=== PATIENT | male | born 1975 | race African-American/Black ===

== ENCOUNTER 2022-09-09 20:40 | Emergency (ER) | payer OTHER, SELFPAY ==
[2022-09-09 20:43] VITALS: BP 146/97; PULSE 82; RESP 18; TEMP 36.8; O2SAT 98
--- NOTE | 2022-09-09 20:55 | ED.URI ---
HPI - URI/Sore Throat General Chief Complaint: Upper Respiratory Infection Stated Complaint: sinus infection Time Seen by Provider: 09/09/22 20:50 History of Present Illness HPI Narrative: 46-year-old male presents to the emergency room for evaluation of left-sided facial pain radiates into his teeth. States has been having symptoms for a week. Took Sudafed x1 with no relief of symptoms. States pain is worse when he leans forward to tie his shoes. Also complaining of sinus congestion postnasal drip and a headache. Related Data Allergies Allergy/AdvReac Type Severity Reaction Status Date / Time No Known Allergies Allergy Verified 09/09/22 20:49 Review of Systems Review of Systems: CONSTITUTIONAL: Denies fever, chills, or sweats. EYES: Denies visual changes, redness, or discharge. ENT: Reports rhinorrhea, congestion, and facial pain CARDIOVASCULAR: Denies chest pain, palpitations, or edema. RESPIRATORY: Denies cough or dyspnea. GASTROINTESTINAL: Denies abdominal pain, nausea, vomiting, or diarrhea. GENITOURINARY: Denies dysuria or hematuria. SKIN: Denies rash or itching. MUSCULOSKELETAL: Denies back pain, joint pain, or myalgia. NEUROLOGIC: Denies headache, numbness, dizziness, or weakness. PSYCHIATRIC: Denies anxiety or depression. Exam Narrative: GENERAL: Well-appearing, well-nourished, no physical limitations, and in no acute distress. HEAD: Normocephalic, atraumatic. EYES: Conjunctivae normal, PERRLA and EOMI. ENT: External nose normal, Nares clear, no rhinorrhea or epistaxis. Mucous membranes moist. Oropharynx without tonsillar hypertrophy exudate or other lesions. External ears normal, bilateral TMs normal bilaterally. Tenderness over left maxillary sinus NECK: Supple. No adenopathy or masses. CHEST: Clear to auscultation. No respiratory distress. No wheezes rales or rhonchi. HEART: Regular rate and rhythm. No murmur heard. Normal peripheral pulses. EXTREMITIES: Normal range of motion. No edema. No clubbing or cyanosis SKIN: Warm, dry, no rash. No noted wounds NEURO: No focal deficits. Alert and oriented x3. MAEW. CN's II-XI intact bilaterally, normal gait PSYCH: Cooperative. Normal mood and affect. Course Vital Signs Vital signs: Vital Signs Temperature 36.8 C 09/09/22 20:43 Pulse Rate 82 09/09/22 20:43 Respiratory Rate 18 09/09/22 20:43 Blood Pressure 146/97 H 09/09/22 20:43 Pulse Oximetry 98 09/09/22 20:43 Oxygen Delivery Room Air 09/09/22 20:43 Temperature 36.8 C 09/09/22 20:43 Pulse Rate 82 09/09/22 20:43 Respiratory Rate 18 09/09/22 20:43 Blood Pressure 146/97 H 09/09/22 20:43 Pulse Oximetry 98 09/09/22 20:43 Oxygen Delivery Room Air 09/09/22 20:43 Discharge Plan Discharge Clinical Impression: Acute infection of sinus Patient Disposition: Home, Self-Care Condition: Stable Instructions: Antibiotic Form, Sinusitis (ED) Prescriptions: New amoxicillin-pot clavulanate 875-125 mg tablet 1 tablet PO Q12H Qty: 14 0RF pseudoephedrine HCl [Sudogest] 30 mg tablet 30 mg PO Q4-6H PRN (Reason: nasal congestion) Qty: 30 0RF Rx Instructions: DNExceed 4 doses/24h prednisone 20 mg tablet 60 mg PO DAILY 5 Days Qty: 15 0RF Follow-up/Referrals: PHYSICIAN,HISTORICAL SITE GUIDE [Primary Care Provider] - Time of Disposition: 20:51
== END 2022-09-09 21:14 | disposition home or self-care (01) ==
PROVIDERS: Emergency Provider Nurse Practitioner Family
DX: J32.9 Chronic sinusitis, unspecified (principal)
CPT/HCPCS: 96372; 99283; J1100

== ENCOUNTER 2024-02-21 18:18 | Emergency (ER) | payer OTHER, SELFPAY ==
--- NOTE | ~2024-02-21 | CT_ITS ---
CT abdomen pelvis w con Ordering provider: Jie Harris History: 48 years Male with . abdominal pain . Comparison: None. Technique: CT abdomen and pelvis with IV and without oral contrast. Automated exposure control and it erative reconstruction technique were employed. The dose-length product was 596.19 mGy-cm. 100 mL Omn ipaque 350 was given IV. Findings: VISUALIZED LOWER CHEST: Normal. UPPER ABDOMINAL ORGANS: Liver: Multiple small cysts are seen in the liver with the largest in the left lobe measuring 1 cm. Gallbladder: Normal. Spleen: Normal. Stomach/duodenum: Normal. Pancreas: Normal. Slightly prominent pancreatic duct. Adrenals: Normal. Kidneys: Tiny cyst in the left kidney. PELVIC ORGANS: The bladder is normal. BOWEL AND MESENTERY: Colon: No evidence of diverticulitis. Normal appendix. Small Bowel: Normal. No obstruction. Peritoneum/mesentery: No free air or free fluid. No mesenteric lymphadenopathy. RETROPERITONEUM: Normal aorta. No retroperitoneal lymphadenopathy. MUSCULOSKELETAL: Superficial soft tissues: The superficial soft tissues are normal. Bones: Normal spine. IMPRESSION: 1. No evidence of appendicitis, diverticulitis or intestinal obstruction. 2. Tiny hepatic cysts. Reviewed, dictated and finalized at location A.
--- NOTE | 2024-02-21 18:40 | ED.GENADULT ---
HPI - General Adult General Chief complaint: Abdominal Pain <Jie Crockett December, [employer] - Last Filed: 02/21/24 18:44> Stated complaint: abd pain, constipation <Jie Crockett December, [employer] - Last Filed: 02/21/24 18:44> Time Seen by Provider: 02/21/24 18:40 <Jie Crockett December, [employer] - Last Filed: 02/21/24 18:44> Focused HPI: Jackson Ruvalcaba is a 48 y/o male who presents with reports of abdominal pain for 3 days to the left lower abdomen. Reports nausea no vomiting. Last BM was 2 days ago NO previous surgery to abdomen He reports feeling hot and cold but not sure about fevers. GENERAL: Well-appearing, well-nourished, and in no acute distress. HEAD: Normocephalic, atraumatic. CHEST: Clear to auscultation. ?No respiratory distress. HEART: Regular rate and rhythm.? NEURO: ?Alert and oriented x3. Patient screened in triage and initial orders placed.? ?Additional care and disposition to be based upon?diagnostic testing and treatment. <Jie Crockett December, - Last Filed: 02/21/24 18:44> Focused HPI: Jackson Ruvalcaba is a 48 y/o male who presents with reports of abdominal pain for 3 days to the left lower abdomen. Reports nausea no vomiting. Unsure when last bowel movement was And admits that he feels as though he has not gone in a while and he will act up. Denies any history of constipation. Is not take anything for constipation does not have anything to take at home for constipation. NO previous surgery to abdomen . He reports feeling hot and cold but not sure about fevers. GENERAL: Well-appearing, well-nourished, and in no acute distress. HEAD: Normocephalic, atraumatic. CHEST: Clear to auscultation. ?No respiratory distress. HEART: Regular rate and rhythm.? NEURO: ?Alert and oriented x3. Patient screened in triage and initial orders placed.? ?Additional care and disposition to be based upon?diagnostic testing and treatment. <Puma Gutierrez MD - Last Filed: 02/21/24 20:09> Related Data Allergies/adverse reactions: Allergies Allergy/AdvReac Type Severity Reaction Status Date / Time No Known Allergies Allergy Verified 02/21/24 18:20 <Jie Harris, [employer] - Last Filed: 02/21/24 18:44> Review of Systems Review of Systems: All systems are reviewed and are negative unless stated otherwise in the HPI. <Puma Gutierrez MD - Last Filed: 02/21/24 20:09> Exam Narrative: General: Alert, awake, afebrile, in no acute distress. HEENT: PERRL, no rhinorrhea, no post nasal drip, oropharynx clear. Cardiovascular: Regular rate and rhythm, no murmurs, rubs or gallops, no peripheral edema. Respiratory: Clear to auscultation bilaterally, no tachypnea, no wheezing, no rhonchi, no rubs, no respiratory distress. Abdomen: Soft, nontender, nondistended, no rebound, no guarding, no peritoneal signs. Musculoskeletal: No joint swelling or deformity, normal muscle tone. Skin: No rashes or petechia, no signs of infection. Neurological: Alert and oriented to person, place, and time. Follows all commands. No focal deficits, speech is clear and fluent. <Puma Gutierrez MD - Last Filed: 02/21/24 20:09> Medical Decision Making MDM Narrative Medical decision making narrative: The patient was evaluated by myself in the emergency department. History is obtained from patient who is an independent historian and physical exam was performed. External medical records were reviewed at this time. IV was established and pertinent tests were ordered. Laboratory results obtained revealing no acute process. Imaging studies obtained included CT abdomen pelvis with IV contrast which was independently interpreted by me revealing no acute process, which is pending final radiology interpretation. Differential diagnosis considerations include constipation, diverticulitis and appendicitis Comorbidities impacting this visit include none. I have evaluated and discussed social determinants of health with the patient that could potentially impact s
[2024-02-21 19:06] LABS: Basophils Percent Auto 0.3 % (0.2-1.2); Eosinophils Absolute Auto 0.1 K/mm3 (0-0.3); Eosinophils Percent Auto 0.8 % (0-4.4); Hematocrit 42.7 % (42.0-52.0); Hemoglobin 14.9 g/dL (14.0-18.0); Immature Granulocyte Absolute 0.01 K/mm3 (0.00-0.031); Immature Granulocyte Percent A 0.1 % (0-0.5); Lymphocytes Percent Auto 39.1 % (18.3-44.2); Mean Corpuscular HGB Conc 34.9 g/dl (32-36); Mean Corpuscular Hemoglobin 31.1 pg (26-34); Mean Corpuscular Volume 89.1 fl (80-100); Mean Platelet Volume 9.8 fl (7.4-10.4); Monocytes Absolute Auto 0.5 K/mm3 (0.1-0.6); Monocytes Percent Auto 6.7 % (2.6-8.5); Neutrophils Absolute Auto 3.8 K/mm3 (1.3-6.7); Platelet Count Result 169 k/mm3 (150-375); Red Blood Count 4.79 M/mm3 (4.6-6.20); Red Cell Distribution Width 12.5 % (11.5-14.5); White Blood Count 7.2 K/mm3 (4.5-10.0)
[2024-02-21 19:18] LABS: Alanine Aminotransferase 16 U/L (6-50); Albumin Level 4.2 g/dL (3.5-5.1); Alkaline Phosphatase 48 U/L (38-126); Anion Gap 7 mmol/L (4-12); Aspartate Amino Transferase 27 U/L (17-59); Bilirubin,Total 0.7 mg/dL (0.2-1.3); Blood Urea Nitrogen 11 mg/dL (9-20); Calcium 9.4 mg/dL (8.4-10.2); Carbon Dioxide 25 mmol/L (22-30); Chloride 110 mmol/L (98-107); Estimated CRCL calculation 87 ml/min; Estimated Glomerular Filt Rate > 60; Glucose 86 mg/dL (65-110); Lipase 35 U/L (23-300); Sodium 142 mmol/L (137-145)
[2024-02-21] MEDS: KETOROLAC 30 MG/ML VIAL (*BKC) IV PUSH (19:37)
[2024-02-21] MEDS: FAMOTIDINE 20 MG/2 ML VIAL IV PUSH (19:38)
[2024-02-21] MEDS: ONDANSETRON INJ 4 MG/2 ML VIAL IV PUSH (19:38)
[2024-02-21 20:27] VITALS: BP 157/72; PULSE 87; RESP 18; TEMP 36.7; O2SAT 100
[2024-02-21 20:57] LABS: Appearance Urine Clear (Clear); Bacteria Urine None Seen /hpf; Bilirubin Urine Negative (Negative); Blood Urine Trace (Negative); Color Urine Yellow (Yellow); Glucose Urine UA Negative (Negative); Ketones Urine Negative (Negative); Leukocyte Esterase Ur Negative LEU/UL (Negative); Need Manual Microscopic Reviewed; Nitrate Urine Negative (Negative); Non Pathogenic Casts 0-2; Protein Urine Negative (Negative); Specific Grav Ur > 1.045 (1.001-1.035); Squamous Epithelial Cell Urine None Seen /hpf (Few); pH Urine 5.5 (5.0-9.0)
[2024-02-21 20:59] LABS: Add Urine Microscopic? YES
[2024-02-23 11:38] LABS: Estimated CRCL calculation 87 ml/min; Estimated Glomerular Filt Rate > 60
== END 2024-02-21 20:30 | disposition home or self-care (01) ==
PROVIDERS: Nurse Practitioner Family; Emergency Provider Emergency Medicine
DX: R10.32 Left lower quadrant pain (principal); R11.0 Nausea
CPT/HCPCS: 36415; 74177; 80053; 81001; 82565; 83690; 85025; 87086; 96374; 96375; 99284; J1885; J2405; Q9967

== ENCOUNTER 2024-05-28 20:23 | Emergency (ER) | payer OTHER, SELFPAY ==
--- NOTE | ~2024-05-28 | CT_ITS ---
CT abdomen pelvis wo con Ordering provider: Latasha Slater PA-C History: 48 years Male with . flank pain, hematuria . Comparison: February 26, 2024 Technique: CT abdomen and pelvis without IV and without oral contrast. Automated exposure control and iterative reconstruction technique were employed. The dose-length product was 610.41 mGy-cm. Findings: VISUALIZED LOWER CHEST: Dependent atelectatic changes. UPPER ABDOMINAL ORGANS: Liver: Multiple tiny hypodensities suggestive of small cysts. Follow-up and further evaluation with u ltrasound advised to confirm cystic nature. Gallbladder: Contracted. Spleen: Normal. Stomach/duodenum: Normal. Pancreas: Normal. Adrenals: Normal. Kidneys: No definite stones. No hydronephrotic changes. PELVIC ORGANS: The bladder shows slightly thickened wall. BOWEL AND MESENTERY: Colon: No evidence of diverticulitis. Fecal material is loaded in the colon suggestive of constipatio n. No evidence of appendicitis. Small Bowel: Normal. No obstruction. Peritoneum/mesentery: No free air or free fluid. No mesenteric lymphadenopathy. RETROPERITONEUM: Moderate atheromatous disease of the abdominal aorta. No retroperitoneal lymphaden opathy. MUSCULOSKELETAL: Superficial soft tissues: The superficial soft tissues are normal. Bones: Normal spine. IMPRESSION: 1. No evidence of appendicitis, diverticulitis or intestinal obstruction. 2. Multiple small hypodensities in the liver most likely cysts. Ultrasound confirmation advised. 3. No definite kidney stones. 4. Slightly thickened wall of the urinary bladder. Evaluation for cystitis advised. 5. Constipation. Reviewed, dictated and finalized at location A. IMPRESSION: 1. No evidence of appendicitis, diverticulitis or intestinal obstruction. 2. Multiple small hypodensities in the liver most likely cysts. Ultrasound con firmation advised. 3. No definite kidney stones. 4. Slightly thickened wall of the urinary bladder. Evaluation for cystitis adv ised. 5. Constipation.
[2024-05-28 20:58] VITALS: BP 122/80; PULSE 78; RESP 16; TEMP 36.9; O2SAT 100
[2024-05-28 22:22] LABS: Add Urine Microscopic? YES; Appearance Urine Turbid (Clear); Bacteria Urine None Seen /hpf; Bilirubin Urine Negative (Negative); Blood Urine 3+ (Negative); Color Urine Yellow (Yellow); Glucose Urine UA Negative (Negative); Ketones Urine Trace mg/dL (Negative); Leukocyte Esterase Ur 3+ LEU/UL (Negative); Nitrate Urine Negative (Negative); Non Pathogenic Casts 0-2; Protein Urine 2+ mg/dL (Negative); RBC Urine >100 /hpf (0-2); Specific Grav Ur 1.027 (1.001-1.035); Squamous Epithelial Cell Urine None Seen /hpf (Few); WBC Urine >100 /hpf (0-3)
[2024-05-28 23:11] LABS: Basophils Percent Auto 0.5 % (0.2-1.2); Eosinophils Absolute Auto 0.1 K/mm3 (0-0.3); Eosinophils Percent Auto 1.3 % (0-4.4); Hemoglobin 14.3 g/dL (14.0-18.0); Immature Granulocyte Absolute 0.02 K/mm3 (0.00-0.031); Immature Granulocyte Percent A 0.3 % (0-0.5); Lymphocytes Absolute Auto 2.99 K/mm3 (0.9-3.2); Lymphocytes Percent Auto 38.4 % (18.3-44.2); Mean Corpuscular HGB Conc 34.9 g/dl (32-36); Mean Corpuscular Hemoglobin 31.8 pg (26-34); Mean Corpuscular Volume 91.1 fl (80-100); Mean Platelet Volume 9.8 fl (7.4-10.4); Monocytes Absolute Auto 0.5 K/mm3 (0.1-0.6); Monocytes Percent Auto 5.8 % (2.6-8.5); Neutrophils Absolute Auto 4.2 K/mm3 (1.3-6.7); Neutrophils Percent Auto 53.7 % (45.5-73.1); Platelet Count Result 167 k/mm3 (150-375); Red Cell Distribution Width 12.1 % (11.5-14.5); White Blood Count 7.8 K/mm3 (4.5-10.0)
--- NOTE | 2024-05-28 23:16 | ED.MALEGU ---
HPI - Male Genitourinary General Chief complaint: Urogenital-Male Stated complaint: Frequently urinating with blood Time Seen by Provider: 05/28/24 22:13 Source: patient Mode of arrival: ambulatory Limitations: no limitations History of Present Illness HPI Narrative: This is a 48-year-old male that presents to the emergency department for hematuria. Reports he is evaluated for this at [facility]. Finished a course of Bactrim. He started to experience hematuria again today which prompted him to be seen. Reports some mild left flank pain. Denies any concern for STDs. Denies fevers or vomiting. Related Data Allergies Allergy/AdvReac Type Severity Reaction Status Date / Time No Known Allergies Allergy Verified 05/28/24 21:03 Review of Systems Review of Systems: CONSTITUTIONAL: Denies fever GASTROINTESTINAL: Denies abdominal pain, nausea, vomiting GENITOURINARY: Reports dysuria and hematuria. All systems reviewed & are unremarkable except as noted in HPI and below PMFSH Past Medical History Medical History (Updated 05/29/24 @ 01:33 by Latasha Slater PA-C) No active medical problems Exam Narrative: GENERAL: Well-appearing, well-nourished, and in no acute distress. HEAD: Normocephalic, atraumatic. EYES: EOMI. CHEST: Clear to auscultation. No respiratory distress. No wheezes rales or rhonchi HEART: Regular rate and rhythm. No murmur heard. Normal peripheral pulses. ABDOMEN: Soft, nontender, nondistended, normal active bowel sounds. EXTREMITIES: Normal range of motion. No edema. SKIN: Warm, dry, no rash. NEURO: No focal deficits. Alert and oriented x3. PSYCH: Normal mood and affect Course Course Emergency Course: Patient updated on his workup and agrees with plan of care Vital Signs Vital signs: Vital Signs Temperature 98.5 F 05/28/24 20:58 Pulse Rate 78 05/28/24 20:58 Respiratory Rate 16 05/28/24 20:58 Blood Pressure 122/80 05/28/24 20:58 Pulse Oximetry 100 05/28/24 20:58 Oxygen Delivery Room Air 05/28/24 20:58 Temperature 98.5 F 05/28/24 20:58 Pulse Rate 78 05/28/24 20:58 Respiratory Rate 16 05/28/24 20:58 Blood Pressure 122/80 05/28/24 20:58 Pulse Oximetry 100 05/28/24 20:58 Oxygen Delivery Room Air 05/28/24 20:58 MDM - Male Genitourinary MDM Narrative Medical decision making narrative: Patient presents the emergency department for hematuria. He is afebrile and nontoxic appearing. His vitals are stable. Cbc without leukocytosis. Metabolic panel with normal appearing kidney function. Urine with evidence of infection. This will be sent for culture. CT abdomen and pelvis shows multiple hypodensities in the liver, most likely cyst. No kidney stones. Slightly thickened wall urinary bladder. Evaluate for cystitis. Constipation. Patient updated on his workup and agrees with plan of care. Given 1st dose of antibiotics IV in the ER. He is to follow up with primary provider. He was given warnings to return to the ER Differential Diagnosis Differential diagnosis: Likely urinary tract infection, urethritis and other (kidney stone) Lab Data Attestation: I reviewed the patient's lab results. 05/28/24 23:05 05/28/24 23:05 Labs: Lab Results 05/28/24 05/28/24 Range/Units 22:12 23:05 WBC 7.8 (4.5-10.0) K/mm3 RBC 4.50 L (4.6-6.20) M/mm3 Hgb 14.3 (14.0-18.0) g/dL Hct 41.0 L (42.0-52.0) % MCV 91.1 (80-100) fl MCH 31.8 (26-34) pg MCHC 34.9 (32-36) g/dl RDW 12.1 (11.5-14.5) % Plt Count 167 (150-375) k/mm3 MPV 9.8 (7.4-10.4) fl Immature Gran % (Auto) 0.3 (0-0.5) % Neut % (Auto) 53.7 (45.5-73.1) % Lymph % (Auto) 38.4 (18.3-44.2) % Hodgeman % (Auto) 5.8 (2.6-8.5) % Eos % (Auto) 1.3 (0-4.4) % Baso % (Auto) 0.5 (0.2-1.2) % Lymph # (Auto) 2.99 (0.9-3.2) K/mm3 Hodgeman # (Auto) 0.5 (0.1-0.6) K/mm3 Eos # (Auto) 0.1 (0-0.3) K/mm3 Baso # (Auto)
[2024-05-28 23:31] LABS: Anion Gap 6 mmol/L (4-12); Blood Urea Nitrogen 13 mg/dL (9-20); Calcium 9.1 mg/dL (8.4-10.2); Carbon Dioxide 23 mmol/L (22-30); Chloride 107 mmol/L (98-107); Estimated CRCL calculation 87 ml/min; Estimated Glomerular Filt Rate > 60; Glucose 88 mg/dL (65-110); Sodium 136 mmol/L (137-145)
[2024-05-29 01:48] VITALS: BP 126/74; PULSE 73; RESP 12; O2SAT 99
== END 2024-05-29 01:49 | disposition home or self-care (01) ==
PROVIDERS: Emergency Medicine; Emergency Provider Physician Assistant
DX: N39.0 Urinary tract infection, site not specified (principal)
CPT/HCPCS: 36415; 74176; 80048; 81001; 85025; 87077; 87086; 87186; 96365; 99284; J0696